=== PATIENT | female | born 1965 ===

== ENCOUNTER 2018-05-14 10:23 | Emergency (ER) | payer MEDICAID, OTHER ==
[~2018-05-14] VITALS: Ht 152.4 cm; Wt 61.0 kg
[2018-05-14] MEDS ORDERED: PENI500T2 PO (11:12)
[2018-05-14 11:21] VITALS: BP 118/75
== END 2018-05-14 11:22 | disposition home or self-care (01) ==
LOC: ER 10:24
DX: K04.7 Periapical abscess without sinus (principal); K02.9 Dental caries, unspecified; F17.200 Nicotine dependence, unspecified, uncomplicated; Z98.890 Other specified postprocedural states; Z79.899 Other long term (current) drug therapy
CPT/HCPCS: 99283